=== PATIENT | male | born 1990 | race Hispanic/Latino ===

== ENCOUNTER 2018-05-06 18:11 | Emergency (ER) | payer SELFPAY ==
[2018-05-06 18:16] VITALS: BP 129/88; PULSE 100; RESP 20; TEMP 98.5; O2SAT 97
== END 2018-05-06 19:03 | disposition left against medical advice (07) ==
LOC: C.ER 18:11
DX: Z02.89 Encounter for other administrative examinations (principal); Z00.00 Encounter for general adult medical examination without abnormal findings